=== PATIENT | male | born 1950 | race Caucasian/White ===

== ENCOUNTER 2021-09-17 11:11 | Day surgery (SDC) | payer MEDICARE ==
[2021-09-16 10:12] VITALS: BMI 32.8
[2021-09-17] MEDS ORDERED: Bupivacaine PF 0.5% 30 ML VIAL ONE (12:38)
[2021-09-17] MEDS ORDERED: Bupivacaine 0.25% 10 ML VIAL ONE (12:38)
[2021-09-17] MEDS ORDERED: Lidocaine 1% w/Epinephrine 1:100K 20 ML VIAL ONE (12:38)
[2021-09-17] MEDS ORDERED: Fentanyl 250 MCG/5 ML VIAL ONE (12:52)
[2021-09-17] MEDS ORDERED: ePHEDrine 50 MG/ML VIAL ONE (13:10)
[2021-09-17] MEDS ORDERED: Lidocaine 1% PF 5 ML VIAL ONE (13:10)
[2021-09-17] MEDS ORDERED: Dexamethasone 20 MG/5 ML VIAL ONE (13:10)
[2021-09-17] MEDS ORDERED: Ondansetron PF 4 MG/2 ML Vial ONE (13:10)
[2021-09-17] MEDS ORDERED: PROPOFOL 200 MG/20 ML VIAL ONE (13:10)
== END 2021-09-17 15:40 | disposition home or self-care (01) ==
LOC: SDC 11:11
PROVIDERS: ATTEND Surgery
PROC: 0YU50JZ Supplement Right Inguinal Region with Synthetic Substitute, Open Approach (ICD-10-PCS; principal; 2021-09-17)
DX: K40.90 Unilateral inguinal hernia, without obstruction or gangrene, not specified as recurrent (principal); I10 Essential (primary) hypertension; I25.10 Atherosclerotic heart disease of native coronary artery without angina pectoris; I48.0 Paroxysmal atrial fibrillation; I25.2 Old myocardial infarction; I65.23 Occlusion and stenosis of bilateral carotid arteries; F17.210 Nicotine dependence, cigarettes, uncomplicated; N40.0 Benign prostatic hyperplasia without lower urinary tract symptoms; E78.00 Pure hypercholesterolemia, unspecified; Z79.82 Long term (current) use of aspirin; Z79.899 Other long term (current) drug therapy; Z95.1 Presence of aortocoronary bypass graft
CPT/HCPCS: A4306; J1100; J2405; J2704; J3010; J3490; S0020